=== PATIENT | female | born 1955 | race Asian ===

== ENCOUNTER → 2016-11-14 | Outpatient (CLI) | payer BC | END | disposition home or self-care (01) | LOC: RADPV 11:38 | PROVIDERS: ATTEND Internal Medicine | DX: M47.816 Spondylosis without myelopathy or radiculopathy, lumbar region (principal); M41.86 Other forms of scoliosis, lumbar region; M41.84 Other forms of scoliosis, thoracic region; M47.814 Spondylosis without myelopathy or radiculopathy, thoracic region; M25.78 Osteophyte, vertebrae; I70.8 Atherosclerosis of other arteries; M19.142 Post-traumatic osteoarthritis, left hand; M77.9 Enthesopathy, unspecified | CPT/HCPCS: 72070; 72100 ==

== ENCOUNTER → 2017-03-29 | Outpatient (CLI) | payer BC | END | disposition home or self-care (01) | LOC: RADPV 13:35 | PROVIDERS: ATTEND Internal Medicine | DX: I70.0 Atherosclerosis of aorta (principal); M41.80 Other forms of scoliosis, site unspecified | CPT/HCPCS: 71020 ==